=== PATIENT | male | born 1980 | race Caucasian/White ===

== ENCOUNTER 2018-01-17 13:14 | Inpatient (IN) | payer MEDICAID ==
[2018-01-17] MEDS ORDERED: ONDANSETRON 4 MG/2 ML VIAL ONE (13:42)
[2018-01-17] MEDS ORDERED: NS 1,000 ML IV ONE ×2 (13:43→13:50)
[2018-01-17] MEDS ORDERED: ONDANSETRON 4 MG/2 ML VIAL IVP ONE (13:43)
[2018-01-17] MEDS ORDERED: KETAMINE 200 MG/20 ML VIAL IVP ONE (13:45)
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
[2018-01-17 14:05] LABS: PLATELET COUNT 302 10^3/uL (150-400)
[2018-01-17] MEDS ORDERED: IOPAMIDOL (ISOVUE-300) 100 ML BTL ONE (14:09)
[2018-01-17] MEDS ORDERED: ACETAMINOPHEN 325 MG TAB PO PRN (16:03)
[2018-01-17] MEDS ORDERED: ONDANSETRON 4 MG/2 ML VIAL IVP PRN (16:03)
[2018-01-17] MEDS ORDERED: ONDANSETRON DISINTEGRATING 4 MG TAB PO PRN (16:03)
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
[2018-01-17] MEDS: NS 1,000 ML IV SCH (16:58)
[2018-01-17] MEDS: HYDROmorphONE/DILAUDID 1 MG/ML INJ IVP PRN ×2 (16:59→21:16)
[2018-01-17] MEDS: oxyCODONE IR 5 MG TAB PO PRN ×2 (18:23→23:36)
[2018-01-17] MEDS ORDERED: DRONABINOL 2.5 MG CAP PO SCH (22:00)
[2018-01-17] MEDS: DRONABINOL 2.5 MG CAP PO SCH (23:36)
[2018-01-17] MEDS: buPROPion 100 MG TAB PO SCH (23:36)
[2018-01-17] MEDS: busPIRone 15 MG TAB PO SCH (23:57)
[2018-01-17] MEDS: LITHIUM CARBONATE 300 MG TAB PO SCH (23:58)
[2018-01-18] MEDS: NS 1,000 ML IV SCH ×2 (01:55→09:44)
[2018-01-18] MEDS: HYDROmorphONE/DILAUDID 1 MG/ML INJ IVP PRN (01:55)
[2018-01-18] MEDS ORDERED: POLYETHYLENE GLYCOL 3350 17 GM PKT PO PRN (02:06)
[2018-01-18] MEDS ORDERED: MAGNESIUM HYDROXIDE 30 ML UDCUP PO PRN (02:06)
[2018-01-18] MEDS ORDERED: BISACODYL 10 MG SUPP PR PRN (02:06)
[2018-01-18] MEDS ORDERED: LACTULOSE 20 GM/30 ML UDCUP PO PRN (02:06)
[2018-01-18] MEDS ORDERED: LORazepam 2 MG/ML INJ IVP PRN (02:07)
[2018-01-18] MEDS: oxyCODONE IR 5 MG TAB PO PRN ×3 (04:16→11:57)
[2018-01-18 04:29] LABS: PLATELET COUNT 289 10^3/uL (150-400)
[2018-01-18] MEDS: LITHIUM CARBONATE 300 MG TAB PO SCH ×2 (08:32→20:04)
[2018-01-18] MEDS: buPROPion 100 MG TAB PO SCH ×2 (08:33→16:34)
[2018-01-18] MEDS: FAMOTIDINE 20 MG TAB PO SCH ×2 (08:35→20:04)
[2018-01-18] MEDS: busPIRone 15 MG TAB PO SCH ×2 (08:35→20:04)
[2018-01-18] MEDS: DRONABINOL 2.5 MG CAP PO SCH ×2 (08:36→16:34)
[2018-01-18] MEDS: SENNOSIDES/DOCUSATE SODIUM TAB PO SCH (08:39)
--- NOTE | 2018-01-18 09:35 | ASMTCMCOM ---
CM Note CM Note Notes: Chart reviewed for dc planning purposes. 37 year old male admitted with complaints of abdominal pain and hemoptysis He is from [place]. no known address on chart. Was recently at [facility]. Needs TBD. Plan: TBD Date Signed: 01/18/2018 09:34 AM Electronically Signed By:Trish Jolly RN
[2018-01-18] MEDS ORDERED: KETAMINE IVP ONE ×2 (13:34→14:00)
[2018-01-18] MEDS ORDERED: PEG 3350/NA SULF,BICARB,CL/KCL (GAVILYTE-G) 4000 ML BTL PO ONE (13:35)
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
[2018-01-18] MEDS: PANTOPRAZOLE SODIUM 40 MG TAB PO SCH ×2 (14:39→20:04)
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
[2018-01-18] MEDS ORDERED: TEARS/DEXTRAN 70/HYPROMELLOSE 15 ML OPHT.BTL EACHEYE PRN (20:42)
[2018-01-18] MEDS ORDERED: fentaNYL 100 MCG/2 ML INJ IVP ONE (22:46)
[2018-01-18] MEDS: LORazepam 2 MG/ML INJ IVP PRN (23:12)
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
[2018-01-19] MEDS: buPROPion 100 MG TAB PO SCH ×3 (00:16→15:41)
[2018-01-19] MEDS: DRONABINOL 2.5 MG CAP PO SCH ×3 (00:17→15:41)
[2018-01-19] MEDS: SENNOSIDES/DOCUSATE SODIUM TAB PO SCH ×2 (00:17→09:42)
[2018-01-19] MEDS: PANTOPRAZOLE SODIUM 40 MG VIAL IVP SCH ×2 (00:41→09:41)
[2018-01-19] MEDS: LORazepam 2 MG/ML INJ IVP PRN (05:04)
[2018-01-19 05:46] LABS: PLATELET COUNT 296 10^3/uL (150-400)
[2018-01-19 05:47] LABS: INR 0.85 (0.83-1.16); PROTIME(PATIENT) 11.8 SEC (12.0-15.0)
[2018-01-19] MEDS: busPIRone 15 MG TAB PO SCH (09:41)
[2018-01-19] MEDS: FAMOTIDINE 20 MG TAB PO SCH (09:41)
[2018-01-19] MEDS: LITHIUM CARBONATE 300 MG TAB PO SCH (09:42)
--- NOTE | 2018-01-19 13:03 | PDANEPAE ---
ANE Past Medical History - Pulmonary History Hx Oxygen in Use at Home: No Hx Sleep Apnea: No Sleep Apnea Screening Result - Last Documented: Negative - Endocrine History Hx Diabetes: No ANE Review of Systems Review of Systems: ANE Patient History - Allergies Allergies/Adverse Reactions: dicyclomine [From Bentyl] Allergy (Verified 01/17/18 13:20) diphenhydramine [From Benadryl] Allergy (Verified 01/17/18 13:20) promethazine [From Phenergan] Allergy (Verified 01/17/18 13:20) tramadol Allergy (Verified 01/17/18 13:20) BROTH Allergy (Uncoded 01/17/18 13:20) - Home Medications Home Medications: Dronabinol [Marinol 2.5 MG (*)] 2.5 mg PO TID 01/17/18 [Last Taken 01/16/18 09: 00] Famotidine [Pepcid 20 MG (*)] 40 mg PO BID 01/17/18 [Last Taken 01/16/18 09:00] [place] Carbonate [[place] Carbonate Tab 300 mg (*)] 600 mg PO HS 01/17/18 [ Last Taken 01/15/18] [place] Carbonate [[place] Carbonate Tab 300 mg (*)] 900 mg PO DAILY 01/17/18 [ Last Taken 01/16/18] buPROPion [Wellbutrin 100mg (*)] 150 mg PO TID 01/17/18 [Last Taken 01/16/18 09: 00] busPIRone [Buspar (*)] 30 mg PO BID 01/17/18 [Last Taken 01/16/18 09:00] - NPO status NPO Since - Liquids (Date): 01/19/18 NPO Since - Liquids (Time): 00:00 NPO Since - Solids (Date): 01/19/18 NPO Since - Solids (Time): 00:00 - Smoking Hx Smoking Status: Never smoked ANE Labs/Vital Signs - Labs Result Diagrams: 01/19/18 05:15 01/19/18 05:15 - Vital Signs Blood Pressure: 106/60 Heart Rate: 73 Respiratory Rate: 12 O2 Sat (%): 94 Height: 182.88 cm Weight: 108.465 kg ANE Physical Exam - Airway Neck exam: FROM Mallampati Score: Class 2 Mouth exam: poor dentition - Pulmonary Pulmonary: no respiratory distress, no rales or rhonchi, clear to auscultation - Cardiovascular Cardiovascular: regular rate and rhythym, no murmur, rub, or gallop - ASA Status ASA Status: III, IV ANE Anesthesia Plan Anesthesia Plan: GA with mask
[2018-01-19] MEDS ORDERED: MIDAZOLAM 2 MG/2 ML VIAL ONE (13:09)
[2018-01-19] MEDS ORDERED: PROPOFOL/EMULSION 500 MG/50 ML BOTTLE IV ONE (13:09)
[2018-01-19] MEDS ORDERED: fentaNYL 100 MCG/2 ML INJ ONE (13:09)
[2018-01-19] MEDS ORDERED: ROCURONIUM 50 MG/5 ML VIAL ONE ×2 (13:40)
[2018-01-19] MEDS ORDERED: LIDOCAINE 2% 5 ML SDV ONE (13:41)
[2018-01-19] MEDS ORDERED: SUGAMMADEX SODIUM 200 MG/2 ML VIAL IVP ONE (13:41)
[2018-01-19] MEDS ORDERED: ONDANSETRON 4 MG/2 ML VIAL ONE (13:41)
[2018-01-19] MEDS ORDERED: ALBUTEROL 3 ML DEYVIAL IH PRN (13:43)
[2018-01-19] MEDS ORDERED: NALOXONE HCL 0.4 MG/ML INJ IVP PRN (13:43)
[2018-01-19] MEDS ORDERED: NS 500 ML IV PRN (13:43)
[2018-01-19] MEDS ORDERED: fentaNYL 100 MCG/2 ML INJ IVP PRN (13:43)
[2018-01-19] MEDS ORDERED: ONDANSETRON 4 MG/2 ML VIAL IVP PRN (13:43)
--- NOTE | 2018-01-19 14:02 | GIREPORT ---
[facility] - Endoscopy Department Patient Name: Marcus Garner Procedure Date: 01/19/2018 1:37 PM Patient Type: Inpatient Attending MD/ ER Physician: Thierry Marcus MD Procedure: Upper GI endoscopy Indications: Hematemesis Providers: Thierry Marcus MD Medicines: Propofol per Anesthesia Complications: No immediate complications. Description of Procedure: After obtaining informed consent, the endoscope was passed under direct vision. Throughout the procedure, the patient's blood pressure, pulse, and oxygen saturations were monitored continuously. The Endoscope was intro duced through the mouth, and advanced to the second part of duodenum. The [facility] er GI endoscopy was accomplished without difficulty. The patient tolerated th e procedure well. Findings: The esophagus was normal. A deformity was found on the greater curvature of the stomach. This is from a prior gastrostomy placement. Diffuse mild mucosal changes characterized by congestion, erythema and granularity were found in the entire examined stomach. The duodenal bulb, first portion of the duodenum, second portion of the duodenum and area of the papilla were normal. Estimated Blood Loss: Estimated blood loss: none. Post Op Diagnosis: - Normal esophagus. - Post-surgical deformity in the greater curve of the stomach, likely f rom a prior gastrostomy placement. - Congested, erythematous and granular mucosa in the stomach. - Normal duodenal bulb, first portion of the duodenum, second portion o f the duodenum and area of the papilla. - No specimens collected. - No active bleeding found. Recommendation: - Advance diet as tolerated. - Continue present medications. - Return patient to [facility] for ongoing care. - Thank you for allowing me to be involved in the care of your patient. Attending Participation: I personally performed the entire procedure without the assistance of a fellow, resident or surg ical clinical physician assistant. Thierry Marcus MD Thierry Marcus MD 01/19/2018 2:02:12 PM This report has been signed electronicallyDavid MD Angeline Number of Addenda: 0 Note Initiated On: 01/19/2018 1:37 PM [email or web address]
[2018-01-19 14:37] VITALS: BP 109/61
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
--- NOTE | 2018-01-19 15:46 | GDS ---
[f rep st] DISCHARGE SUMMARY DISCHARGE DIAGNOSES: 1. Hematemesis of uncertain source with no loss of blood. Query malingering. 2. Large abdominal hernia. 3. Abdominal pain of uncertain etiology. 4. History of abdominal hernia repair with mesh infection status post removal in November of 2016. 5. Chronic abdominal pain. HISTORY AND HOSPITAL COURSE: Please see admission history and physical by Dr. Jeanne Nunez. The margoth bañuelos presented with abdominal pain. He is relatively new to [place]. He was recently hospitalized at [facility] in [facility] and it sounds like he was escorted out because they would not do any int erventions. The patient was requesting narcotics and ketamine. He received 1 dose of ketamine on the floor. He received one in the emergency department. His hematocrit was followed. He had an exam that was cons istent with a large abdominal hernia without incarceration or strangulation. He had normal labs incl uding normal LFTs. He was stool guaiac positive. Gastric occult blood that was that came out of his mouth was positive, but the examination of his oropharynx and EGD showed no evidence of b lood. The patient was made clear that he would be discharged. He was eating a cheeseburger at the time of discharge. He was prescribed a prescription for Zofran and Marinol. /[id number]/MODL
--- NOTE | 2018-01-19 20:21 | POSTANESTH ---
Post Anesthetic Evaluation Cardiovascular Status: Normal, Stable, Similar to Pre-Op Cond Respiratory Status: Normal, Stable, Similar to Pre-op Cond. Level of Consciousness/Mental Status: Can Participate in Eval Pain Control: Adequate, Prn Tx Ordered Nausea/Vomiting Control: Adequate, Prn Tx Ordered Complications Possibly Related to Anesthesia: None Noted
== END 2018-01-19 17:33 | disposition home or self-care (01) | DRG 254 ==
LOC: EDBD 13:14 → F1N 16:05 → OBSVTOIN 01-18 16:06
PROVIDERS: ADMIT Family Medicine; ATTEND Family Medicine
PROC: 0DJ08ZZ Inspection of Upper Intestinal Tract, Via Natural or Artificial Opening Endoscopic (ICD-10-PCS; principal; 2018-01-19 13:15)
DX: K59.00 Constipation, unspecified (principal); K92.0 Hematemesis; K43.9 Ventral hernia without obstruction or gangrene; K42.9 Umbilical hernia without obstruction or gangrene; G89.29 Other chronic pain; D64.9 Anemia, unspecified; Z76.5 Malingerer [conscious simulation]
CPT/HCPCS: 82435-PO; 82565-PO; 82947-PO; 84132-PO; 84295-PO; 84520-PO; 85014-PO; 96374; G0378; J1170; J2060; J2250; J2405; J2704; J3010; Q9967